=== PATIENT | female | born 1955 | race Caucasian/White ===

== ENCOUNTER → 2016-06-06 | Day surgery (SDC) | payer OTHER ==
[~2016-06-06] MED LIST: ACETAMINOPHEN 1000 MG/100 ML VIAL IV ONE; LACTATED RINGER'S 1000 ML INJ 1,000 ML ONE; LIDOCAINE 1%/EPINEPHrine 1:100,000 SOLN 20 ML VIAL ONE; MIDAZOLAM HCL 2 MG/2 ML VIAL ONE; ONDANSETRON HCL 4 MG/2 ML VIAL IV PUSH ONE; PROPOFOL 500 MG/50 ML BTL IV ONE; VANCOMYCIN HCL 1000 MG VIAL ONE; ceFAZolin INJ 1,000 MG VIAL ONE
--- NOTE | 2016-06-08 22:06 | MP ---
cc: CORONA NEAL MD, RUBY ANNE E. M.D. KROCHAK, RONALD J. MD DATE OF SURGERY 06/06/2016 PROCEDURE Right breast needle localized lumpectomy PREOPERATIVE DIAGNOSIS Intermediate grade DCIS right breast. POSTOPERATIVE DIAGNOSIS Intermediate grade DCIS right breast. ANESTHESIA TIVA. SURGEON Patricia Neal MD ESTIMATED BLOOD LOSS Less than 50 mL FLUIDS 950 mL crystalloid COMPLICATIONS None. DRAINS None. SPECIMEN Right breast needle localized right breast tissue to pathology. PROCEDURE IN DETAIL The patient was taken to the department of radiology where she underwent needle localization procedure. She was brought to the operating room and placed on the operating table in the supine position. After an adequate level of IV sedation was begun, the right breast was prepped and draped in the field. Time-out was taken confirming the correct patient, site and procedure to be performed. Skin and subcutaneous tissue was infiltrated with local anesthetic and a circumareolar incision was made midway between the needle insertion site and nipple-areolar complex. Dissection was carried down to the needle which was cut at the skin and brought into the wound. A core of tissue was removed around the needle. The specimen was oriented with silk sutures and passed off the table. All bleeding was then meticulously controlled with electrocautery and two 3-0 Vicryl sutures. Specimen radiograph was obtained which demonstrated the clip to be present within the specimen. With hemostasis achieved, the wound was closed in two layers with interrupted 3-0 Vicryl suture and 5-0 PDS in a running subcuticular fashion. The wound and the needle puncture site were dressed with Steri-Strips. The patient was taken back to the recovery room in stable condition. Sponge, needle and instrument counts were reported to be correct. The patient tolerated the procedure well. MD LUNA Laird/ /1:02 PM /10:00 PM
== END | disposition home or self-care (01) ==
LOC: ESDC 09:04
PROVIDERS: ATTEND Surgery Trauma Surgery
DX: D05.11 Intraductal carcinoma in situ of right breast (principal)
CPT/HCPCS: 00400; 19125; 88307; J0131; J0690; J2250; J2405; J3010; J3370; J7120